=== PATIENT | male | born 1960 | race Caucasian/White ===

== ENCOUNTER 2023-11-07 22:29 | Outpatient (CLI) | payer OTHER | END 2023-11-07 23:59 | disposition critical access hospital (66) | LOC: EMS 22:29 | DX: M79.89 Other specified soft tissue disorders (principal); M25.561 Pain in right knee; Z96.651 Presence of right artificial knee joint | CPT/HCPCS: A0425; A0429 ==

== ENCOUNTER 2023-11-07 22:46 | Emergency (ER) | payer OTHER ==
--- NOTE | 2023-11-07 22:51 | ED Physician Documentation ---
PD HPI LOWER EXT INJURY - Stated complaint Stated Complaint: RT KNEE PX - History obtained from History obtained from: Patient - History of Present Illness PD HPI LOW EXT INJURY LOCATION: Right, Knee Type of injury: Other (surgery 5 days ago at [facility] in [place]) Where injury occurred: Work (original injury at work was years ago and is L& I claim including need for partial joint replacement.) Timing - onset: How many days ago (4 days ago had surgery) Timing - duration: Days (4) Timing - details: Gradual onset, Still present Improved by: Rest, Immobilization, Meds Worsened by: Moving, Palpating Associated symptoms: Swelling. No: Weakness, Numbness, Tingling, Discolored Contributing factors: Prosthetic joint, Work related. No: Anticoagulated Similar symptoms before: Has not had sx before Recently seen: Surgery - Additional information Additional information: Wei Covington is a 63-year-old male who has had an injury to his meniscus years ago at work and recently has had a partial knee replacement on the right side about 4 days ago. He is here today with swelling and pain to his right knee that has concerned him for the possibility of infection. He feels he has more pain and swelling than would be normal. He has had poor control of his pain with oxycodone with Tylenol. He has been in contact with the on-call orthopedic surgeon over the weekend and he was eventually directed to the emergency department for evaluation. He has not had fever, vomiting or shortness of breath. He is having a hard time getting around using a walker and hopping. Review of Systems Constitutional: denies: Fever, Chills, Myalgias Ears: denies: Ear pain Nose: denies: Congestion Throat: denies: Sore throat Cardiac: denies: Chest pain / pressure Respiratory: denies: Dyspnea, Cough GI: denies: Abdominal Pain, Nausea, Vomiting, Constipation, Diarrhea : denies: Dysuria, Frequency Skin: denies: Rash Musculoskeletal: reports: Extremity pain, Joint pain, Joint swelling, Pain with weight bearing. denies: Neck pain, Back pain PD PAST MEDICAL HISTORY - Allergies Allergies/Adverse Reactions: Allergies Allergy/AdvReac Type Severity Reaction Status Date / Time No Known Drug Allergies Allergy Verified 11/07/23 22:54 PD ED PE NORMAL - Vitals Vital signs reviewed: Yes (hypertensive mild ) - General General: Alert and oriented X 3, No acute distress, Well developed/nourished - HEENT HEENT: Atraumatic, PERRL, EOMI - Respiratory Respiratory: No respiratory distress - Derm Derm: Normal color, Warm and dry, No rash - Extremities Extremities: Other (There is a surgical dressing in place on the anterior portion of the R knee. There is no joint effusion palpable. There is no swelling to the ankle or foot. There is no calf tenderness or cord palpable. Mild general tenderness to the knee, pain with flexion extension. 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, No motor deficit, No sensory deficit, Normal speech Eye Opening: Spontaneous Motor: Obeys Commands Verbal: Oriented GCS Score: 15 - Psych Psych: Normal mood, Normal affect Results - Vitals Vitals: Vital Signs - 24 hr 11/07/23 11/07/23 11/08/23 22:51 23:01 01:00 Temperature 36.7 C Heart Rate 83 76 78 Respiratory 18 18 Rate Blood Pressure 117/82 H 108/80 O2 Saturation 96 96 Oxygen O2 Source Room air - Labs Labs: Laboratory Tests 11/07/23 11/07/23 11/07/23 23:02 23:02 23:02 WBC 10.6 RBC 5.68 Hgb 15.5 Hct 48.0 MCV 84.5 MCH 27.3 MCHC 32.3 RDW 13.7 Plt Count 181 MPV 11.5 H Neut # (Auto) 7.6 H Lymph # (Auto) 1.7 [place] # (Auto) 1.0 Eos # (Auto) 0.2 Baso # (Auto) 0.0 Absolute Nucleated RBC 0.00 Nucleated RBC % 0.0 ESR Sodium 135 Potassium 4.2 Chloride 103 Carbon Dioxide 23 Anion Gap 9.0 BUN 28 H Creatinine 1.0 Estimated GFR (MDRD) 75 L Glucose 134 H Calcium 9.6 Total Bilirubin 1.1 H AST 17 ALT 22 Alkaline Phosphatase 72 C-Reactive Protein 5.3 H Total Protein 7.1 Albumin 4.1 Globulin 3.0 Albumin/Globulin Ratio 1.4 Lipase 15 11/07/23 23:02 WBC RBC Hgb Hct MCV MCH MCHC RDW Plt Count MPV Neut # (Auto) Lymph # (Auto) [place] # (Auto) Eos # (Auto) Baso # (Auto) Absolute Nucleated RBC Nucleated RBC % ESR 12 Sodium Potassium Chloride Carbon Dioxide Anion Gap BUN Creatinine Estimated GFR (MDRD) Glucose Calcium Total Bilirubin AST ALT Alkaline Phosphatase C-Reactive Protein Total Protein Albumin Globulin Albumin/Globulin Ratio Lipase - Rads (name of study) R knee Relevant Findings:: Prelim report reviewed (Impression: Postsurgical changes from recent medial unicompartmental arthroplasty with expected postoperative appearance.), EMP independent interpretation of test, See rad report PD Medical Decision Making - ED course Complexity details: considered differential, d/w patient Reviewed Lab Results: We reviewed a complete blood count showing a normal white blood cell count normal hemoglobin hematocrit and platelets the sedimentation rate was 12 chemistries showed normal electrolytes BUN mildly elevated at 28 with a normal creatinine of 1.0 liver functions were normal C-reactive protein mildly elevated at 5.3. I interpret these laboratory test to indicate a mild degree of dehydration with an elevated BUN and no evidence of an overwhelming infection with normal white blood cell count. No evidence of excessive blood loss with normal blood counts. Evidence of postoperative inflammation with mildly elevated C-reactive protein. Normal sedimentation rate. ED course: 63-year-old Wei Covington is coming to the emergency department today with complaints of pain and swelling to his right knee that has been present since discharge from the hospital and has not resolved. He had surgery about 5 days ago. He has called the on-call orthopedic surgeon a number of times over the weekend and he has been directed to the emergency department for evaluation. The patient felt that he should be admitted to the hospital for evaluation of potential infection. He has been taking oxycodone with Tylenol for pain control and this has been inadequate. Today in the emergency department we found that he was dehydrated and administered saline and we were able to obtain blood work that was reassuring for absence of overwhelming infection. Examination of the knee itself shows postoperative swelling without evidence of distal swelling or evidence to suggest deep vein thrombosis. We did not perform routine ultrasound evaluation of the lower extremities as we do not have an on-call nanotechnologist nician today. I felt comfortable that this was not a deep vein thrombosis and was postoperative swelling. I consulted the on-call orthopedic physician Dr. Sean Elder and he confirmed that postoperatively the patient should have pain and swelling that would not be resolved at this point. I felt confident that the surgical wound looked well and the case consistent with postoperative recovery and poor pain control. We administered Toradol to the patient with marked improvement in his pain. Patient was discharged to home to follow-up with his orthopedic physician by phone tomorrow regarding the need for further evaluation. I have encouraged the patient to use 800 mg of ibuprofen along with Tylenol for pain control as this may be better controlled than the Percocet he is taking. Departure - Departure Disposition: 01 Home, Self Care Clinical Impression: Postoperative pain of knee Condition: Stable Instructions: ED Post Op Pain, ED Wound Check Post Op No Infec Follow-Up: Thang Ge MD [Physician No Access] - Comments: Wei, today it looks like the swelling you are having in your knee is normal postoperatively for day #5. I did not find any evidence to suggest deep vein thrombosis as a reason for this swelling. It does appear you are having inadequate pain control with the use of the Percocet and my recommendation is to take some ibuprofen 800 mg every 8 hours with food as needed for pain. You can take this with Tylenol but do not take additional Tylenol if you are taking Percocet as well. It is okay to take the Percocet with the ibuprofen. Follow- up with your surgeon tomorrow by telephone with regards to your progress. It will usually take 10 to 14 days for the swelling to improve following surgery. Swelling in your ankle and calf and foot is not expected and evaluation for DVT would be indicated if you develop this swelling.We did not find any evidence of infection today with a normal white blood cell count and no fever as well as lack of surrounding redness or drainage.
[2023-11-07 23:16] LABS: BASOPHILS % (AUTO) 0.3 %; EOSINOPHILS # (AUTO) 0.2 10^3/uL (0.0-0.7); EOSINOPHILS % (AUTO) 1.7 %; HGB - HEMOGLOBIN 15.5 g/dL (14.0-18.0); LYMPHOCYTES # (AUTO) 1.7 10^3/uL (1.5-3.5); MEAN CORPUSCULAR HEMOGLOBIN 27.3 pg (27.0-31.0); MEAN CORPUSCULAR HGB CONC 32.3 g/dL (32.0-36.0); MEAN CORPUSCULAR VOLUME 84.5 fL (80.0-94.0); MEAN PLATELET VOLUME 11.5 fL (7.4-11.4); MONOCYTES % (AUTO) 9.2 %; NEUTROPHILS # (AUTO) 7.6 10^3/uL (1.5-6.6); NEUTROPHILS % (AUTO) 72.2 %; PLT - PLATELET COUNT 181 10^3/uL (130-450); RED BLOOD COUNT 5.68 10^6/uL (4.70-6.10); RED CELL DISTRIBUTION WIDTH 13.7 % (12.0-15.0); WHITE BLOOD COUNT 10.6 x10^3/uL (4.8-10.8)
[2023-11-07 23:29] LABS: ALBUMIN 4.1 g/dL (3.2-5.5); ALBUMIN/GLOBULIN RATIO 1.4 (1.0-2.2); BILIRUBIN,TOTAL 1.1 mg/dL (0.2-1.0); CALCIUM 9.6 mg/dL (8.5-10.3); POTASSIUM 4.2 mmol/L (3.5-4.5); TOTAL PROTEIN 7.1 g/dL (6.4-8.9)
--- NOTE | 2023-11-07 23:34 | XRAY Report ---
PROCEDURE: Knee 3V RT INDICATIONS: post op swelling TECHNIQUE: 3 views of the knee were acquired. COMPARISON: None. FINDINGS: Bones: Postsurgical changes are seen from medial unicompartmental arthroplasty. Hardware components in expected positions. No acute osseous fracture. Soft tissues: Postsurgical changes are seen in the soft tissue surrounding the knee. IMPRESSION: Postsurgical changes from recent medial unicompartmental arthroplasty with expected postoperative clay earance. Reviewed by: Frankie Garza MD on 11/07/2023 11:32 PM PDT Approved by: Frankie Garza MD on 11/07/2023 11:32 PM PDT Station ID: [id number]
[2023-11-08] MEDS: KETOROLAC 30 MG/ML VIAL IVP STA (00:36)
[2023-11-08 03:34] VITALS: BP 110/85; O2SAT 98
== END 2023-11-08 03:22 | disposition home or self-care (01) ==
LOC: ED 22:46
DX: G89.18 Other acute postprocedural pain (principal); M25.561 Pain in right knee
CPT/HCPCS: 36415; 80053; 83690; 85025; 85651; 86140; 87040; 96374; 99284